=== PATIENT | male | born 1935 | race Caucasian/White ===

== ENCOUNTER 2018-02-27 19:43 | Emergency (ER) | payer SELFPAY ==
--- NOTE | 2018-02-27 20:01 | PDOC ---
Rapid Medical Evaluation Time Seen by Provider: 02/27/18 19:57 Medical Evaluation: I have performed a brief in-person evaluation of this patient. The patient presents with a chief complaint of: weakness x 2 days, headache x 4 days. Family states he normally walks but for the past 2 days he hasn't been walking Pertinent physical exam findings: patient appears weak. He is frail. In wheelchair I have ordered the following: labs, UA, EKG, CXR The patient will proceed to the ED for further evaluation. Discharge Disposition - Diagnosis Weakness - Referrals - Patient Instructions - Post Discharge Activity
[2018-02-27 20:07] VITALS: BP 128/82; PULSE 95; TEMP 99.7; BMI 26.6
[2018-02-27 20:51] LABS: BASO % 0.5 % (0-2.0); EOS % 0.6 % (0-4.5); HEMATOCRIT 40.4 % (35.4-49); HEMOGLOBIN 13.8 GM/dL (11.7-16.9); LYMPH % 11.4 % (8-40); MCH 32.6 pg (25.7-33.7); MCHC 34.1 g/dl (32.0-35.9); MEAN CELL VOLUME 95.5 fl (80-96); MEAN PLT VOLUME 6.6 fl (7.5-11.1); MONO % 13.9 % (3.8-10.2); NEUT % 73.6 % (42.8-82.8); PLATELET COUNT 296 K/MM3 (134-434); RBC 4.23 M/mm3 (4.00-5.60); RDW 13.9 % (11.9-15.9)
--- NOTE | 2018-02-27 21:14 | PDOC ---
History of Present Illness - General History Source: Patient <IvanrenzoGermán - Last Filed: 02/28/18 01:02> - General History Source: Patient, Parent(s) Exam Limitations: No Limitations - History of Present Illness Initial Comments: 02/27/18 21:45 The patient is a 82 year old male with past medical history of Parkinson's disease presents to the emergency department complaining of headache, weakness and neck pain. As per the family members, the patients been having difficulty ambulating, with increased weakness and lethargy. The family reports on baseline the patient can ambulate w/ a walker or with the assist of a family member. They reports the last 2 days the patients been non ambulatory even with assist. The patient reports concern of neck pain and headache. The family reports the patient suffered a fall one week prior, unclear on the detail but states loss of strength. The family reports on baseline the patient intakes small amount of food, denies any change in appetite. The family reports complain of moderate constipation. Denies fever, chills or cough. Denies chest pain or sob. Denies nausea or vomiting. Denies diarrhea. Denies dysuria, hematuria, frequency or urgency to urinate. Denies vertigo or dizziness. Denies numbness, tingling or loss of sensation. Allergies: NKDA Social history: None reported Surgical history: None reported PCP: None reported <Radha Hanna - Last Filed: 02/28/18 01:47> - General Chief Complaint: Weakness Stated Complaint: FATIGUE Time Seen by Provider: 02/27/18 19:57 Past History - Suicide/Smoking/Psychosocial Hx Smoking History: Never smoked Have you smoked in the past 12 months: No Information on smoking cessation initiated: No Hx Alcohol Use: No Drug/Substance Use Hx: No <Germán Cee - Last Filed: 02/28/18 01:02> Review of Systems - Review of Systems Able to Perform ROS?: Yes Comments:: 02/27/18 21:46 CONSTITUTIONAL: (+) generalized weakness Absent: fever, chills, diaphoresis, malaise, loss of appetite HEENT: (+)Neck pain Absent: rhinorrhea, nasal congestion, throat pain, throat swelling, difficulty swallowing, mouth swelling, ear pain, eye pain, visual Changes CARDIOVASCULAR: Absent: chest pain, syncope, palpitations, irregular heart rate, lightheadedness , peripheral edema RESPIRATORY: Absent: cough, shortness of breath, dyspnea with exertion, orthopnea, wheezing, stridor, hemoptysis GASTROINTESTINAL: (+) Moderate constipation Absent: abdominal pain, abdominal distension, nausea, vomiting, diarrhea,, melena, hematochezia GENITOURINARY: Absent: dysuria, frequency, urgency, hesitancy, hematuria, flank pain, genital pain MUSCULOSKELETAL: Absent: myalgia, arthralgia, joint swelling SKIN: Absent: rash, itching, pallor HEMATOLOGIC/IMMUNOLOGIC: Absent: easy bleeding, easy bruising, lymphadenopathy, frequent infections ENDOCRINE: Absent: unexplained weight gain, unexplained weight loss, heat intolerance, cold intolerance NEUROLOGIC: (+) headache Absent: focal weakness or paresthesias, dizziness, unsteady gait, seizure, mental status changes, bladder or bowel incontinence PSYCHIATRIC: Absent: anxiety, depression, suicidal or homicidal ideation, hallucinations. <Radha Hanna - Last Filed: 02/28/18 01:47> *Physical Exam - Vital Signs Last Vital Signs Temp Pulse Resp BP Pulse Ox 99.7 F H 95 H 20 128/82 98 02/27/18 20:00 02/27/18 20:00 02/27/18 20:00 02/27/18 20:00 02/27/18 20:00 <Germán Cee - Last Filed: 02/28/18 01:02> - Vital Signs Last Vital Signs Temp Pulse Resp BP Pulse Ox 99.7 F H 95 H 20 128/82 98 02/27/18 20:00 02/27/18 20:00 02/27/18 20:00 02/27/18 20:00 02/27/18 20:00 - Physical Exam Comments: 02/27/18 21:56 GENERAL: Answers questions very slowly, speaks in short sentences Well developed, well nourished. Awake and alert. No acute distress. HEENT: Normocephalic, atraumatic. PERRLA, EOMI. No conjunctival pallor. Sclera are non- icteric. Moist mucous membranes. Oropharynx is clear. NECK: (+) No cervical bony tenderness. Supple. Full ROM. No JVD. Carotid pulses 2+ and symmetric, without bruits. No thyromegaly. No lymphadenopathy. CARDIOVASCULAR: Regular rate and rhythm. No murmurs, rubs, or gallops. Distal pulses are 2+ and symmetric. PULMONARY: No evidence of respiratory distress. Lungs clear to auscultation bilaterally. No wheezing, rales or rhonchi. ABDOMINAL: Pelvic stable and Negative rock. Soft. Non-tender. Non-distended. No rebound or guarding. No organomegaly. Normoactive bowel sounds. MUSCULOSKELETAL Normal range of motion at all joints. No bony deformities or tenderness. No CVA tenderness. EXTREMITIES: No bony deformities No cyanosis. No clubbing. No edema. No calf tenderness. SKIN: Warm and dry. Normal capillary refill. No rashes. No jaundice. NEUROLOGICAL: Alert, awake, appropriate. Cranial nerves 2-12 intact. No deficits to light touch and temperature in face, upper extremities and lower extremities. No motor deficits in the in face, upper extremities and lower extremities. Normoreflexic in the upper and lower extremities. Normal speech. Toes are down- going bilaterally. Gait is normal without ataxia. PSYCHIATRIC: Cooperative. Good eye contact. Appropriate mood and affect. <Radha Hanna - Last Filed: 02/28/18 01:47> Heart Score/ECG Review - ECG Impressions Comment:: 02/28/18 00:13 Vent rate: 7 bpm FL interval 150 ms QRS duration: 80 ms Normal sinus rhythm Minimal voltage criteria for LVH, may be normal variant. <Radha Hanna - Last Filed: 02/28/18 01:47> ED Treatment Course - LABORATORY CBC & Chemistry Diagram: 02/27/18 20:45 02/27/18 20:45 - ADDITIONAL ORDERS Additional order review: 02/27/18 20:45 RBC 4.23 MCV 95.5 MCHC 34.1 RDW 13.9 MPV 6.6 L Neutrophils % 73.6 Lymphocytes % 11.4 Monocytes % 13.9 H Eosinophils % 0.6 Basophils % 0.5 <Germán Cee - Last Filed: 02/28/18 01:02> - LABORATORY CBC & Chemistry Diagram: 02/27/18 20:45 02/27/18 20:45 - ADDITIONAL ORDERS Additional order review: Laboratory Results 02/27/18 02/27/18 20:45 20:45 Sodium 132 L Potassium 4.3 Chloride 98 Carbon Dioxide 25 Anion Gap 9 BUN 14 Creatinine 0.8 Creat Clearance w eGFR > 60 Random Glucose 118 H Lactic Acid 1.5 Calcium 8.9 Total Bilirubin 0.9 AST 22 ALT 21 Alkaline Phosphatase 106 Creatine Kinase 63 Troponin I < 0.02 Total Protein 8.1 Albumin 3.7 02/27/18 20:45 RBC 4.23 MCV 95.5 MCHC 34.1 RDW 13.9 MPV 6.6 L Neutrophils % 73.6 Lymphocytes % 11.4 Monocytes % 13.9 H Eosinophils % 0.6 Basophils % 0.5 <Radha Hanna - Last Filed: 02/28/18 01:47> Medical Decision Making - Medical Decision Making 02/28/18 01:04 Dr. Cee: The scribe's documentation has been prepared under my direction and personally reviewed by me in its entirery. I confirm that the note above accurately reflects all work, treatment, procedures, and medical decision making performed by me. all studies returned negative for any pathology. Patient family advised to follow-up with the physicians refed to them for further evaluatiion. <Germán Cee - Last Filed: 02/28/18 01:02> *DC/Admit/Observation/Transfer - Discharge Dispostion Decision to Admit order: No <Germán Cee - Last Filed: 02/28/18 01:02> - Attestations Scribe Attestion: 02/27/18 21:57 Documentation prepared by Radha Hanna, acting as medical concierge for Germán Cee DO. <Radha Hanna - Last Filed: 02/28/18 01:47> Diagnosis at time of Disposition: Weakness, Parkinson disease - Discharge Dispostion Disposition: HOME Condition at time of disposition: Stable - Referrals Referrals: Shane Ramirez MD [Staff Physician] - Marcell Juárez DO [Staff Physician] - - Patient Instructions Printed Discharge Instructions: DI for Parkinson's Disease, DI for Muscle Weakness Additional Instructions: Please follow up with your doctor or the doctor's provide as soon as possible. Return if any problems. Print Language: [place]
[2018-02-27 21:17] LABS: ALBUMIN 3.7 g/dl (3.4-5.0); ANION GAP 9 (8-16); BILIRUBIN,TOTAL 0.9 mg/dL (0.2-1.0); BLOOD UREA NITROGEN 14 mg/dL (7-18); CALCIUM 8.9 mg/dL (8.5-10.1); CHLORIDE 98 mmol/L (98-107); CO2 25 mmol/L (21-32); CREATININE 0.8 mg/dL (0.7-1.3); GLUCOSE,RANDOM 118 mg/dL (74-106); SODIUM 132 mmol/L (136-145); TOT PROT 8.1 g/dl (6.4-8.2)
[2018-02-27 21:21] LABS: ALK PHOS 106 U/L (45-117); SGPT/ALT 21 U/L (12-78)
[2018-02-27 21:31] LABS: POTASSIUM 4.3 mmol/L (3.5-5.1); SGOT/AST 22 U/L (15-37)
--- NOTE | 2018-02-28 09:42 | EKG ---
Test Reason : Blood Pressure : / mmHG Vent. Rate : 077 BPM Atrial Rate : 077 BPM P-R Int : 150 ms QRS Dur : 080 ms QT Int : 392 ms P-R-T Axes : 029 -07 038 degrees QTc Int : 443 ms POOR DATA QUALITY, INTERPRETATION MAY BE ADVERSELY AFFECTED NORMAL SINUS RHYTHM MINIMAL VOLTAGE CRITERIA FOR LVH, MAY BE NORMAL VARIANT BORDERLINE ECG NO PREVIOUS ECGS AVAILABLE Confirmed by POONAM COLINDRES, QUENTIN ([id number]) on 02/28/2018 9:41:52 AM Referred By: Confirmed By:QUENTIN LEVIN MD
== END 2018-02-28 02:41 | disposition home or self-care (01) ==
LOC: JER 19:43
DX: G20 Parkinson's disease (principal); R53.1 Weakness
CPT/HCPCS: 36415; 70450-TC; 71045-TC-FY; 72125-TC; 74176-TC; 80053; 82550; 83605; 84484; 85025; 93005; 93010; 99283-25